=== PATIENT | male | born 1955 ===

== ENCOUNTER → 2018-08-16 | Outpatient (CLI) | payer MEDICARE, BC ==
[~2018-08-16] MED LIST: MULT1TAB64 PO; ONDA4TAB97 PO; OXYC-865 PO
--- NOTE | 2018-08-16 15:39 | RADIOLOGY IMAGING REPORT ---
FACILITY: [facility] PATIENT NAME: Wojciech Pena : 1955 MR: [id number] V: [id number] EXAM DATE: ORDERING PHYSICIAN: JESUS ALBERTO ANAND TECHNOLOGIST: Location: [facility] Patient: Wojciech Pena : 1955 Visit/Account:[id number] Date of Sevice: 08/16/2018 SHOULDER LEFT W/O CONTRAST COMPARISON: None. HISTORY: Chronic left shoulder pain with history of 2 prior left shoulder rotator cuff surgery. TECHNIQUE: Noncontrast multiplanar MRI of the left shoulder utilizing T1 weighted and fluid sensitiv e sequences. Motion minimizing sequences were deployed to minimize motion artifact. These can cause a rtifactual signal changes in the rotator cuff tendons. CONTRAST: None. FINDINGS: ROTATOR CUFF: Marked thinning of the supraspinatus tendon throughout the critical zone which could b e due to high-grade articular and bursal sided tearing, previous tendon debridement or both. There is only a thin band of remaining tendon fibers noted within its critical zone. This remaining band of f ibers is not appreciably irregular, favoring prior tendon debridement. The tendon is intact at the in sertion where there are suture anchors from previous tendon repair. There is no definite full-thickne ss rotator cuff tear when accounting for artifact on the motion minimizing sequences. The rest of the rotator cuff tendons are intact. There is no muscle atrophy or edema. BICEPS: Extra-articular segment is normal in signal and normally positioned within the intertubercul ar sulcus. Intra-articular segment is difficult to assess because of artifact on the motion minimizin g sequences but there is mild intermediate signal in the visualized intra-articular segment consisten t with tendinosis. FLUID/BURSA: There is no glenohumeral or AC joint effusion. Mild fluid in the subacromial bursa. GLENOHUMERAL JOINT: Mild inferior glenohumeral spurring consistent with osteoarthritis. Lack of fl uid in the joint and arthrogram technique limits assessment for subtle labral pathology. There is no convincing noncontrast MR evidence for a labral tear. AC JOINT: There is no acromioclavicular osteoarthritis. Type II acromion without significant subacro mial spur or os acromiale. BONES: There is no osseous malalignment or marrow signal abnormality. There is no Hill-Sachs deformi ty or osseous Bankart lesion. OTHER: Numerous small foci of postsurgical susceptibility artifact throughout the soft tissues. IMPRESSION: 1. Suboptimal examination due to motion artifact. Motion minimizing sequences were employed. 2. Marked thinning of the supraspinatus tendon throughout the critical zone which could be due to hi gh-grade articular and bursal sided tearing, previous tendon debridement or both. The thinned, remain ing tendon fibers are not significantly irregular, favoring previous tendon debridement. 3. Mild subacromial bursitis. 4. Mild intra-articular segment biceps tendinosis. 5. Mild glenohumeral osteoarthritis. Report Dictated By: Joel Lockhart at 08/16/2018 3:22 PM Report E-Signed By: Joel Lockhart at 08/16/2018 3:34 PM WSN:[id number]
== END ==
LOC: MRI 04:41
PROVIDERS: ATTEND Family Medicine
DX: M75.52 Bursitis of left shoulder (principal); M75.82 Other shoulder lesions, left shoulder; M19.012 Primary osteoarthritis, left shoulder